=== PATIENT | female | born 1935 | race Caucasian/White ===

== ENCOUNTER → 2016-06-08 | Day surgery (SDC) | payer MEDICARE ==
[~2016-06-08] MED LIST: ATEN1TAB74 PO; COUM5TAB PO; DIGO.125 PO; FURO1TAB93 PO; LACTATED RINGER'S 1000 ML INJ 1,000 ML ONE; LIDOCAINE 1%/EPINEPHrine 1:100,000 SOLN 20 ML VIAL ONE; MIDAZOLAM HCL 2 MG/2 ML VIAL ONE; ONDANSETRON HCL 4 MG/2 ML VIAL IV PUSH ONE; PROPOFOL 200 MG/20 ML AMP IV ONE; SODIUM CHLORIDE 0.9% 20 ML VIAL ONE; SPIRCAP INH; TELM1TAB56 PO; VITA400C28 PO; ZOCO40TA PO; ceFAZolin 2 GM PREMIX 50 ML ONE
--- NOTE | 2016-06-09 06:10 | MP ---
cc: SNOW KOENIG M.D. DATE OF SURGERY June 08, 2016 PREOPERATIVE DIAGNOSIS Biopsy-proven recurrent basal cell carcinoma left side of the nose near the tip in the ala, approximately 1.5 cm in diameter. POSTOPERATIVE DIAGNOSIS Biopsy-proven recurrent basal cell carcinoma left side of the nose near the tip in the ala, approximately 1.5 cm in diameter. OPERATION Excision, frozen section left side nose basal cell carcinoma and full-thickness skin graft from the left neck reconstruction. SURGEON Dr. Koenig ANESTHESIA General. INDICATIONS An 81-year-old white female with biopsy-proven basal cell carcinoma with a previous history of basal cell in the same area on the left side of the nose. The lesion was approximately 1.2-cm in diameter and about 3-mm margin was taken, approximately 1.6-cm overall. Preoperative markings had been made. The patient had been explained the overall reconstruction option and has chosen to go with the simplest option of full-thickness skin graft at the present time. She understands the possibility of skin graft not taken and further reconstruction may be required or even an open secondary wound healing may be resorted to. PROCEDURE The patient was brought to the operating room, was given supine position. Anesthesia was started. Prep and drape was done. IV antibiotic had been given. Preoperative markings were reinforced. The nasal lesion area was injected with lidocaine 1% with epi and saline mixture. The lesion was excised cleanly straight down to the perichondrial layer and the cartilage was preserved. The specimen was suture marked superiorly, sent for frozen section. Hemostasis was completed with pinpoint Bovie cautery and the local pressure was applied. The skin graft was harvested from her left posterior neck mastoid area utilizing part of her previous surgical scars from prior surgery. The graft was harvested full-thickness. It was trimmed on the underside to remove some of the deeper tissue which actually consists of surgical scarring rather than normal fatty tissue. The graft was placed in the defect and sutured in place, leaving one end long while waiting for the pathology report. The donor site was also closed with deep inverting Vicryl sutures. The pathology report received indicated the presence of basal cell carcinoma in the specimen and clear margins. The graft in-setting was completed and local dressing was applied to both places. The patient remained stable through the procedure. Intraoperative blood loss 5-10 cc. No complications. SIGNED, NOT FULLY REVIEWED MD CHRISSY Whelan/ALEXIS /9:10 PM /6:01 AM TAYLOR
== END | disposition home or self-care (01) ==
LOC: ESDC 08:38
PROVIDERS: ATTEND Plastic Surgery
DX: C44.311 Basal cell carcinoma of skin of nose (principal)
CPT/HCPCS: 00300; 11642; 15260; 88305; 88331; J0690; J2250; J2405; J3010; J7120